=== PATIENT | female | born 1970 | race Two or more races ===

== ENCOUNTER 2022-08-15 07:47 | Emergency (ER) | payer OTHER ==
[2022-08-15 07:53] VITALS: BP 137/80; PULSE 89; RESP 18; TEMP 99.1; BMI 38.7
[2022-08-15] MEDS ORDERED: ACETAMINOPHEN 500 MG TABLET (FP) PO ONE (08:12)
[2022-08-15] MEDS ORDERED: BENZOCAINE/MENTH/CETYLPYRD CL 1 EACH LOZENGE MM ONE ×2 (08:12→08:20)
[2022-08-15] MEDS ORDERED: IBUPROFEN 600 MG TABLET (FP) PO ONE ×2 (08:19→08:27)
[2022-08-15] MEDS ORDERED: IBUPROFEN 400 MG TABLET (FP) PO ONE (08:21)
[2022-08-15] MEDS ORDERED: AZITHROMYCIN 250 MG TABLET PO ONE (08:48)
[2022-08-15] MEDS ORDERED: AMOX TR/POT CLAV 875MG/125MG TABLETS (FP) PO ONE (08:49)
[2022-08-15] MEDS ORDERED: AMOX TR/POT CLAV 875MG/125MG TABLETS (FP) ONE (09:09)
[2022-08-15] MEDS ORDERED: AZITHROMYCIN 500 MG TABLET ONE (09:09)
== END 2022-08-15 09:26 | disposition home or self-care (01) ==
LOC: JER 07:47
DX: R07.0 Pain in throat (principal); M54.9 Dorsalgia, unspecified; R05.9 Cough, unspecified; J02.9 Acute pharyngitis, unspecified; Z20.822 Contact with and (suspected) exposure to COVID-19
CPT/HCPCS: 0241U-QW; 71046-TC-FY; 99284-25

== ENCOUNTER 2022-09-07 19:56 | Emergency (ER) | payer OTHER ==
[2022-09-07 20:06] VITALS: BP 149/62; PULSE 77; RESP 18; TEMP 98; BMI 37.4
[2022-09-07] MEDS ORDERED: IBUPROFEN 600 MG TABLET (FP) PO ONE ×2 (20:36→20:37)
== END 2022-09-07 20:48 | disposition home or self-care (01) ==
LOC: JERFT 19:56
DX: B02.9 Zoster without complications (principal); M79.642 Pain in left hand; R21 Rash and other nonspecific skin eruption
CPT/HCPCS: 99283-25